=== PATIENT | female | born 1990 | race Caucasian/White ===

== ENCOUNTER 2019-07-02 10:59 | Emergency (ER) | payer OTHER ==
[~2019-07-02] VITALS: Ht 154.9 cm; Wt 57.6 kg
[2019-07-02 11:13] VITALS: BP 109/78
--- NOTE | 2019-07-02 11:15 | NUR ---
PT TO BED 3 WITH STEADY GAIT
--- NOTE | 2019-07-02 11:25 | NUR ---
29 Y/O F C/O LOWER ABDOMINAL PAY X 3 DAYS THAT IS CONSTANT. PT STATES THIS HAS HAPPENED BEFORE, BUT NOT INTENSE. PT DENIES FEVER/VOMITING/DIAHREA. PT ABDOMEN IS SOFT, PAIN WITH TOUCHING. PT POSITIONED FOR COMFORT, BED RAIL X1 IN PLACE. NKA
--- NOTE | 2019-07-02 11:29 | NUR ---
DR LORA AT BEDSIDE.
[2019-07-02] MEDS ORDERED: KETOROLAC 30 MG/ML VIAL IM ONE (11:30)
--- NOTE | 2019-07-02 11:49 | NUR ---
LAB AT BEDSIDE DRAWING ORDERED LABS.
[2019-07-02 12:19] LABS: APPEARANCE,URINE CLEAR (CLEAR); BILIRUBIN,URINE NEGATIVE (NEGATIVE); BLOOD, URINE TRACE-I (NEGATIVE); COLOR,URINE YELLOW (YELLOW); LEUKOCYTE ESTERASE ,URINE 1+ (NEGATIVE); NITRITE, URINE NEGATIVE (NEGATIVE); UGLUCOSE NEGATIVE (NEGATIVE)
--- NOTE | 2019-07-02 12:24 | NUR ---
PT TO XRAY BY WHEELCHAIR
[2019-07-02 12:43] LABS: RBC,URINE 0-5 /HPF (0-5)
[2019-07-02 12:54] VITALS: BP 109/78
--- NOTE | 2019-07-02 12:54 | NUR ---
Patient discharged with v/s stable. Written and verbal after care instructions given and explained. Patient alert, oriented and verbalized understanding of instructions. Ambulatory with steady gait. All questions addressed prior to discharge. ID band removed. Patient advised to follow up with PMD. Rx of MIRALAX, CIPRO given. Patient educated on indication of medication including possible reaction and side effects. Opportunity to ask questions provided and answered.
== END 2019-07-02 12:54 | disposition home or self-care (01) ==
LOC: MED 10:59
DX: K59.00 Constipation, unspecified (principal); R10.84 Generalized abdominal pain; N39.0 Urinary tract infection, site not specified
CPT/HCPCS: 36415; 74018; 81001; 81025; 84702; 87086; 96372; 99284; J1885

== ENCOUNTER 2019-09-12 09:34 | Day surgery (SDC) | payer OTHER ==
[~2019-09-12] VITALS: Ht 152.4 cm; Wt 57.6 kg
[2019-09-12] MEDS ORDERED: fentaNYL 0.05 MG/ML VIAL ONE (11:05)
[2019-09-12] MEDS ORDERED: LIDOCAINE 2% 100 MG/5 ML UJET TP ONE (11:05)
[2019-09-12] MEDS ORDERED: MIDAZOLAM 2 MG/2 ML VIAL ONE (11:05)
[2019-09-12] MEDS ORDERED: LIDOCAINE VISCOUS 2% 20 ML UDC ONE (11:10)
[2019-09-12] MEDS ORDERED: fentaNYL 0.05 MG/ML VIAL IVP ONE (11:14)
[2019-09-12] MEDS ORDERED: MIDAZOLAM 2 MG/2 ML VIAL IVP ONE (11:15)
[2019-09-12] MEDS ORDERED: LIDOCAINE VISCOUS 2% 20 ML UDC PO SCH (13:00)
== END 2019-09-12 12:40 | disposition home or self-care (01) ==
LOC: MDS 09:34 → MMU 09:34 → MDS 12:40
PROVIDERS: ATTEND Internal Medicine Gastroenterology
DX: R63.4 Abnormal weight loss (principal); K29.50 Unspecified chronic gastritis without bleeding; K63.89 Other specified diseases of intestine; K31.89 Other diseases of stomach and duodenum; K20.9 Esophagitis, unspecified; Z90.49 Acquired absence of other specified parts of digestive tract; Z79.899 Other long term (current) drug therapy; Z72.89 Other problems related to lifestyle
CPT/HCPCS: 43239; 45380; 88305; 88312; 88313; J2250; J3010